=== PATIENT | male | born 1970 | race Hispanic/Latino ===

== ENCOUNTER 2016-11-15 22:25 | Emergency (ER) | payer MEDICARE, OTHER ==
[~2016-11-15] VITALS: Ht 172.7 cm; Wt 72.6 kg
[~2016-11-15 22:25] MED LIST: ABILIFY2 MG ORAL; GEMFIBROZIL600 MG ORAL; LISINOPRIL5 MG ORAL; METFORMIN HCL500 M1 ORAL; NKM; NORCO 5-325 TA1 EACH ORAL; NORVIR100 MG ORAL; PRAVASTATIN SOD20 M1 ORAL; PRISTIQ50 MG PO; PROZAC10 MG ORAL; TRUVADA 200 MG1 EAC1 ORAL; UNOBMED
[2016-11-15 23:30] LABS: TROPONIN I < 0.30 ng/mL (<=0.30)
--- NOTE | 2016-11-16 01:15 | Emergency Room Report ---
History of Present Illness General Chief Complaint: Chest Pain Source: Patient, EMS Present Illness HPI Is a 46-year-old male who has a history of methamphetamine abuse. He complaining of chest pain for last 3 days. He was at an outside hospital last night. He was there for the same thing and workup was negative. He was discharged morning. He said he never became pain free. Did admit to using methamphetamine around noon. No nausea no vomiting. Pain without radiation. Brought in by EMS. No exertional component. Allergies: Coded Allergies: No Known Allergies (Unverified , 02/16/14) Patient History Past Medical History: see triage record, old chart reviewed Past Surgical History: none Pertinent Family History: none Social History: Reports: drug use, smoking Immunizations: other Reviewed Nursing Documentation: PMH: Agreed, PSxH: Agreed Nursing Documentation-PMH Hx Hypertension: Yes Hx Diabetes: Yes History Of Psychiatric Problem: Yes - SCHIZO Review of Systems Eye: Denies: blurred vision, eye pain ENT: Denies: ear pain, nose congestion, throat swelling Respiratory: Denies: cough, shortness of breath Cardiovascular: Reports: chest pain, Denies: palpitations Gastrointestinal: Denies: abdominal pain, diarrhea, nausea, vomiting Musculoskeletal: Denies: back pain, joint pain Skin: Denies: rash Neurological: Denies: headache, numbness Endocrine: Denies: increased thirst, increased urine Hematologic/Lymphatic: Denies: easy bruising All Other Systems: negative except mentioned in HPI Physical Exam Vital Signs Date Time Temp Pulse Resp B/P Pulse Ox O2 Delivery O2 Flow Rate FiO2 11/15/16 22:36 98.4 103 18 138/81 100 Room Air vitals normal Sp02 EP Interpretation: reviewed, normal General Appearance: well appearing, no apparent distress, alert Head: normocephalic, atraumatic Eyes: bilateral eye EOMI, bilateral eye PERRL ENT: hearing grossly normal, normal pharynx Neck: full range of motion, supple, no meningismus Respiratory: chest non-tender, lungs clear, normal breath sounds Cardiovascular #1: regular rate, rhythm, no murmur Gastrointestinal: normal bowel sounds, non tender, no mass, no organomegaly, no bruit, non-distended Musculoskeletal: back normal, gait/station normal, normal range of motion Psychiatric: mood/affect normal Skin: warm/dry Medical Decision Making Diagnostic Impression: Primary Impression: Chest pain Qualified Codes: R07.9 - Chest pain, unspecified Additional Impression: Methamphetamine abuse ER Course Patient presents with atypical chest pain. Pain been ongoing for 3 days. EKG is unremarkable. Troponin negative. We'll discharge home. I see no evidence of ACS, PE, dissection to name a few. EKG Diagnostic Results Rate: normal Rhythm: NSR ST Segments: no acute changes Last Vital Signs Date Time Temp Pulse Resp B/P Pulse Ox O2 Delivery O2 Flow Rate FiO2 11/15/16 22:42 103 18 Room Air 11/15/16 22:36 98.4 138/81 100 Status: improved Disposition: HOME, SELF-CARE Condition: Stable Referrals: NOT CHOSEN IPA/MD,REFERRING (PCP) Patient Instructions: Nonspecific Chest Pain Additional Instructions: Abstain from drugs and alcohol. Followup with your Dr. in 2-3 days. Return if worse. YASMINE MASTERS M.D. November 16, 2016 01:15
[2016-11-16 01:24] VITALS: BP 134/79
--- NOTE | 2016-11-17 20:02 | Cardiology Report ---
APPROVED REPORT EKG Measurement Heart [id number] ID [id number] Sinus tachycardia Left anterior fascicular block Moderate voltage criteria for LVH, may be normal variant Abnormal ECG
== END 2016-11-16 01:28 | disposition home or self-care (01) ==
LOC: EDBD 22:25 → EMR 23:43
DX: R07.9 Chest pain, unspecified (principal); F15.10 Other stimulant abuse, uncomplicated; F17.200 Nicotine dependence, unspecified, uncomplicated; I10 Essential (primary) hypertension; E11.9 Type 2 diabetes mellitus without complications; F20.9 Schizophrenia, unspecified
CPT/HCPCS: 84484; 93005; 99283